=== PATIENT | female | born 1945 | race Caucasian/White ===

== ENCOUNTER 2017-02-22 18:25 | Emergency (ER) | payer MEDICARE, OTHER ==
--- NOTE | 2017-02-22 19:10 | XRAY Preliminary Report ---
Exam: XR Wrist 4 View LT IMPRESSION: Soft tissue swelling. [facility] SITE ID: [id number]
--- NOTE | 2017-02-22 19:12 | XRAY Report ---
EXAM: LEFT WRIST RADIOGRAPHY EXAM DATE: 02/22/2017 06:54 PM. CLINICAL HISTORY: Fall, pain. COMPARISON: None. TECHNIQUE: 4 views. FINDINGS: Bones: Osteopenia. Metal plate secured to the volar surface of distal radius by means of multiple scr ews. Minimal underlying bony thickening at site of old fracture. No acute fracture or other bone lesi on. 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 Soft Tissues: Mild soft tissue swelling. IMPRESSION: Soft tissue swelling. [facility] Referring Provider Line: [phone] SITE ID: [id number]
--- NOTE | 2017-02-22 20:08 | ED Physician Documentation ---
PD HPI UPPER EXT INJURY - Stated complaint Stated Complaint: GLF/PX TO LT WRIST - Chief complaint Chief Complaint: Ext Problem - History obtained from History obtained from: Patient, Family - History of Present Illness Location: Left, Wrist Type of injury: Fall Where injury occurred: Street Timing - onset: How many minutes ago (30) Timing - details: Abrupt onset Improved by: Ice, Immobilization Worsened by: Moving, Palpating Associated symptoms: Swelling. No: Weakness, Numbness Contributing factors: Prior ortho surgery Similar symptoms before: Treatment Recently seen: Not recently seen - Additonal information Additional information: Patient is a 71 year old female who is presenting to the emergency department for wrist pain. Patient states that she slipped earlier today and landed on her left wrist. patient states that she has had prior surgery in her left wrist and wanted to make sure that it was ok. Review of Systems Constitutional: denies: Fever, Chills Ears: denies: Ear pain Nose: denies: Rhinorrhea / runny nose, Congestion, Epistaxis GI: denies: Nausea, Vomiting Skin: denies: Rash, Abrasion (s) Musculoskeletal: reports: Extremity pain, Joint pain, Extremity swelling, Joint swelling Neurologic: denies: Headache, Head injury, LOC Immunocompromised: denies: Immunocompromised PD PAST MEDICAL HISTORY - Allergies Allergies/Adverse Reactions: Allergies Allergy/AdvReac Type Severity Reaction Status Date / Time Penicillins Allergy Hives Verified 02/22/17 18:42 PD ED PE NORMAL - Vitals Vital signs reviewed: Yes - General General: Alert and oriented X 3, No acute distress - HEENT HEENT: Atraumatic, PERRL - Neck Neck: Supple, no meningeal sign - Cardiac Cardiac: RRR, No murmur - Respiratory Respiratory: No respiratory distress - Abdomen Abdomen: Soft, Non tender, Non distended - Derm Derm: Normal color, No rash - Neuro Neuro: Alert and oriented X 3, No motor deficit, No sensory deficit, Normal speech - Psych Psych: Normal mood PD ED PE EXPANDED - Extremities Extremities: Left wrist (tenderness and minimal swelling of left wrist), Motor intact, Sensory intact, Vascular intact, Tendon intact. No: Decreased/absent pulse Results - Vitals Vitals: Vital Signs - 24 hr 02/22/17 02/22/17 18:37 20:21 Temperature 36.7 C Heart Rate 65 58 L Respiratory 18 17 Rate Blood Pressure 186/105 H 107/98 H O2 Saturation 98 100 Oxygen O2 Source Room air - Rads (name of study) left wrist x-ray Radiology: Final report received (no acute fracture or dislocation) PD MEDICAL DECISION MAKING - ED course Complexity details: reviewed old records, reviewed results, re-evaluated patient , d/w patient, d/w family ED course: Patient was seen and examined at bedside. patient had already been sent for imaging. Patient's films were reviewed and there was no acute fracture or dislocation. patient was placed in a splint for comfort and was stable for discharge with outpatient follow up. Departure - Departure Disposition: Home, Self Care Clinical Impression: Contusion of wrist, left Condition: Good Instructions: ED Splint Care Velcro Follow-Up: primary,care provider [Other] - As Needed Comments: Your diagnostics today were within normal limits. there was no acute fracture or dislocation. You should follow up with your pmd if your pain persists for more than 2 weeks. You can return to the emergency department at any time for new, worsening or uncontrollable symptoms. Discharge Date/Time: 02/22/17 20:22
[2017-02-22 20:22] VITALS: BP 107/98
== END 2017-02-22 20:22 | disposition home or self-care (01) ==
LOC: ED 18:25
DX: S60.212A Contusion of left wrist, initial encounter (principal); W01.0XXA Fall on same level from slipping, tripping and stumbling without subsequent striking against object, initial encounter; Y92.488 Other paved roadways as the place of occurrence of the external cause
CPT/HCPCS: 99283